=== PATIENT | female | born 1950 | race Caucasian/White ===

== ENCOUNTER 2017-06-08 10:01 | Observation (INO) | payer MEDICARE ==
[2017-06-07 12:52] LABS: HEMATOCRIT 40.4 % (34.6-47.8); HEMOGLOBIN 13.3 g/dL (11.7-16.4); WHITE BLOOD COUNT 8.4 x10^3/uL (3.4-10)
[2017-06-07 13:14] LABS: ASPARTATE AMINO TRANSFERASE 19 U/L (15-37); BLOOD UREA NITROGEN 13 mg/dL (7-18)
[~2017-06-08] VITALS: Ht 160 cm; Wt 61.4 kg
[~2017-06-08 10:01] MED LIST: ASPI-496 PO; ATOR20TA PO; BUDE10.22 PO; CALC-649 PO; CARV6.252 PO; DIGO125T PO; FOLI0.4T2 PO; FURO20TA3 PO; HYDR-2442 PO; HYDR200T PO; LISI5TAB7 PO; MAGN400T36 PO; MELO-184 PO; METH2.5T PO; SPIR25TA3 PO; TIOT18CA INH; UBID1CAP2 PO
[2017-06-08] MEDS: SODIUM CHLORIDE 0.9% 1,000 ML IV SCH ×2 (10:03→18:03)
[2017-06-08 10:06] VITALS: BP 127/82
[2017-06-08] MEDS ORDERED: LIDOCAINE 2%, 20ML ONE ×2 (10:58→12:05)
[2017-06-08] MEDS ORDERED: CEFAZOLIN 1,000 MG ONE ×2 (10:59→16:20)
[2017-06-08] MEDS ORDERED: FENTANYL PF 100 MCG/2ML ONE (11:39)
[2017-06-08] MEDS ORDERED: MIDAZOLAM 1 MG/ML, 2ML IV PRN (13:30)
[2017-06-08] MEDS ORDERED: FENTANYL PF 100 MCG/2ML IV PRN (13:30)
[2017-06-08] MEDS ORDERED: PROMETHAZINE 25 MG/ML, 1ML IV PRN (13:30)
[2017-06-08] MEDS ORDERED: LABETALOL 5MG/ML, 20ML IV PRN (13:30)
[2017-06-08] MEDS ORDERED: ONDANSETRON 2MG/ML, 2ML IVPush PRN (13:30)
[2017-06-08] MEDS ORDERED: ALBUTEROL SULFATE 2.5 MG/3 ML NPPB PRN (13:30)
[2017-06-08] MEDS ORDERED: OXYcodone 5 MG/5 ML ORAL.SOL UDC PO PRN (13:30)
[2017-06-08] MEDS ORDERED: MEPERIDINE/PF 25MG/0.5ML IVPush PRN (13:30)
[2017-06-08] MEDS ORDERED: ACETAMINOPHEN 325 MG TABLET PO PRN (13:30)
[2017-06-08] MEDS ORDERED: HYDROmorphone 1 MG/ML, 1ML IV PRN (13:30)
[2017-06-08] MEDS ORDERED: hydrALAzine 20 MG/ML, 1ML IV PRN (13:30)
[2017-06-08] MEDS ORDERED: OXYcodone 5 MG/5 ML ORAL.SOL UDC ONE (13:48)
[2017-06-08] MEDS ORDERED: ACETAMINOPHEN 650 MG/20.3 ML UDC ONE (13:48)
[2017-06-08] MEDS ORDERED: ROCURONIUM 10 MG/ML ONE (16:20)
[2017-06-08] MEDS ORDERED: DEXAMETHASONE 4 MG/ML, 1ML ONE (16:20)
[2017-06-08] MEDS ORDERED: ONDANSETRON 2MG/ML, 2ML ONE (16:20)
[2017-06-08] MEDS ORDERED: PHENYLEPHRINE 10 MG/ML ONE (16:20)
[2017-06-08] MEDS ORDERED: PROPOFOL 10 MG/ML, 20ML ONE (16:20)
[2017-06-08] MEDS ORDERED: SUCCINYLCHOLINE 20 MG/ML, 10ML ONE (16:20)
[2017-06-08 19:07] VITALS: BP 100/63
[2017-06-08] MEDS: CARVEDILOL 6.25 MG TABLET PO SCH (20:17)
[2017-06-08] MEDS: CEFAZOLIN PMX 1GM/50ML 50 ML IVPB SCH (20:21)
[2017-06-08] MEDS: HYDROXYCHLOROQUINE 200 MG TABLET PO SCH (20:21)
[2017-06-08] MEDS ORDERED: ATORVASTATIN 20 MG TABLET PO SCH (21:00)
[2017-06-09 01:02] VITALS: BP 102/64
[2017-06-09] MEDS: SODIUM CHLORIDE 0.9% 1,000 ML IV SCH ×2 (02:03→08:29)
[2017-06-09] MEDS: SODIUM CHLORIDE FLUSH 10ML SYR IVF SCH ×2 (04:36→08:22)
[2017-06-09] MEDS: CEFAZOLIN PMX 1GM/50ML 50 ML IVPB SCH (04:36)
[2017-06-09] MEDS ORDERED: ASPIRIN 81 MG TABLET EC PO SCH (06:00)
[2017-06-09] MEDS: CARVEDILOL 6.25 MG TABLET PO SCH (06:20)
[2017-06-09 08:06] VITALS: BP 97/63
[2017-06-09] MEDS: HYDROXYCHLOROQUINE 200 MG TABLET PO SCH (08:18)
[2017-06-09] MEDS ORDERED: DIGOXIN 0.125 MG TABLET PO SCH (09:00)
[2017-06-09] MEDS ORDERED: SPIRONOLACTONE 25 MG TABLET PO SCH (09:00)
[2017-06-09] MEDS ORDERED: FUROSEMIDE 20 MG TABLET PO SCH (09:00)
[2017-06-09] MEDS ORDERED: LISINOPRIL 5 MG TABLET PO SCH (09:00)
[2017-06-09] MEDS ORDERED: MELOXICAM 15 MG TABLET PO SCH (09:00)
[2017-06-09] MEDS ORDERED: MAGNESIUM OXIDE 400 MG TABLET PO SCH (09:00)
[2017-06-09] MEDS ORDERED: CALCIUM/VITAMIN D3 250-125 TABLET PO SCH (09:00)
[2017-06-09] MEDS ORDERED: FLUTICASONE/VILANTEROL 100-25MCG/INH INH SCH (09:00)
[2017-06-09] MEDS ORDERED: FOLIC ACID 1 MG TABLET PO SCH (09:00)
[2017-06-10] MEDS ORDERED: IPRATROPIUM 0.5 MG/2.5 ML INHA NPPB SCH (16:30)
== END 2017-06-09 11:44 | disposition home or self-care (01) ==
LOC: CACL 10:01 → ORIP 13:10 → INTOOBSV 13:16 → OBSVTOIN 13:16 → 5SO 14:48 → ORIP 14:48 → 5SO 06-09 11:04 → DCLOUNGE 06-09 11:04 → UNDODISIN 06-09 11:44
PROVIDERS: ADMIT Internal Medicine Cardiovascular Disease; ATTEND Internal Medicine Cardiovascular Disease
DX: I25.5 Ischemic cardiomyopathy (principal); I50.22 Chronic systolic (congestive) heart failure; I25.10 Atherosclerotic heart disease of native coronary artery without angina pectoris
CPT/HCPCS: 33249; 36415; 71010; 71020; 80053; 85025; 85610; 93005; 93641; 96365; 96375; C1721; C1779; C1892; C1895; G0378; J0330; J0690; J1100; J2370; J2405; J2704; J3010; J3490; Q9967

== ENCOUNTER → 2019-12-10 | Outpatient (CLI) | payer MEDICARE ==
[~2019-12-10] MED LIST changes: -DIGO125T PO; +DIGO125T85 PO; -HYDR200T PO; +HYDR200T72 PO; -MELO-184 PO; +MELO15TA24 PO; -SPIR25TA3 PO; +SPIR25TA5 PO
== END | disposition home or self-care (01) ==
LOC: CFH 08:24
PROVIDERS: ATTEND Nurse Practitioner Family
DX: I08.3 Combined rheumatic disorders of mitral, aortic and tricuspid valves (principal)
CPT/HCPCS: 93306

== ENCOUNTER 2021-01-12 06:02 | Day surgery (SDC) | payer MEDICARE ==
[~2021-01-12] VITALS: Ht 160 cm; Wt 66.4 kg
[~2021-01-12 06:02] MED LIST changes: -FOLI0.4T2 PO; +FOLI0.4T5 PO; -HYDR-2442 PO; +HYDR-3565 PO
[2021-01-12 06:42] VITALS: BP 92/56
[2021-01-12] MEDS ORDERED: SODIUM CHLORIDE 0.9% 1,000 ML IV SCH (07:00)
[2021-01-12] MEDS ORDERED: DABI150C PO (07:04)
[2021-01-12] MEDS ORDERED: EZET10TA70 PO (07:04)
[2021-01-12] MEDS ORDERED: FOLI0.8T5 PO (07:04)
[2021-01-12] MEDS ORDERED: Dulera INH (07:04)
[2021-01-12] MEDS ORDERED: UPAD15TA PO (07:04)
[2021-01-12] MEDS ORDERED: CHOL10003 PO (07:04)
[2021-01-12] MEDS ORDERED: PROPOFOL 10 MG/ML, 20ML ONE (07:26)
== END 2021-01-12 10:09 | disposition home or self-care (01) ==
LOC: CACL 06:02
PROVIDERS: ATTEND Internal Medicine Cardiovascular Disease
DX: I11.0 Hypertensive heart disease with heart failure (principal); I50.22 Chronic systolic (congestive) heart failure; I35.0 Nonrheumatic aortic (valve) stenosis; I34.0 Nonrheumatic mitral (valve) insufficiency; I36.1 Nonrheumatic tricuspid (valve) insufficiency; M06.9 Rheumatoid arthritis, unspecified; I42.9 Cardiomyopathy, unspecified; I48.91 Unspecified atrial fibrillation; I25.10 Atherosclerotic heart disease of native coronary artery without angina pectoris; E78.2 Mixed hyperlipidemia; Z20.822 Contact with and (suspected) exposure to COVID-19; Z79.82 Long term (current) use of aspirin; Z87.891 Personal history of nicotine dependence; Z79.899 Other long term (current) drug therapy; Z95.5 Presence of coronary angioplasty implant and graft; Z98.890 Other specified postprocedural states
CPT/HCPCS: 87635; 93312; 93321; 93325; J2704